=== PATIENT | female | born 1975 | race Caucasian/White ===

== ENCOUNTER 2016-11-19 22:59 | Emergency (ER) | payer OTHER ==
[2016-11-20] MEDS ORDERED: Acetaminophen TAB* 325 MG PO ONE (00:40)
[2016-11-20] MEDS ORDERED: HYDROcodone/ACETAMIN 5-325 MG* 1 TAB PO ONE (01:51)
--- NOTE | 2016-11-20 01:58 | ED ---
Head Injury - HPI Summary HPI Summary: Patient who is ETOH intoxicated arrives to the ED after falling backwards off the porch and hit her head on the right side over the parietal area puncturing the skin approx 30 minutes ago. A friend who was present denies LOC, N/V but states she was immediately confused and bleeding from the head. She also refused to get up until ambulance arrived. She does not recall the events immediately after she fell, but she does remember falling off the porch. She denies other pain or concerns. Denies neck pain, back pain, or hip pain. Denies lower and upper extremity pain. - History Of Current Complaint Chief Complaint: EDHeadInjury Stated Complaint: FALL/HEAD LAC Time Seen by Provider: 11/20/16 00:24 Hx Obtained From: Patient Hx Last Menstrual Period: jul 14 (every 3 months) Mechanism Of Injury: Direct Blow Onset/Duration: Started Hours Ago Onset of Pain: Immediate Severity Currently: Mild Severity Initially: Mild Pain Intensity: 0 Pain Scale Used: 0-10 Numeric Location of Head Injury: Parietal Character: Dull Associated Signs And Symptoms: Confusion, Headache - Risk Factors SDH Risk Factor: Negative - Allergies/Home Medications Allergies/Adverse Reactions: Allergies Allergy/AdvReac Type Severity Reaction Status Date / Time Amoxicillin Allergy Rash Verified 11/19/16 23:05 Penicillins Allergy Rash Verified 11/19/16 23:05 ENVIRONMENTAL Allergy SNEEZING, Uncoded 11/19/16 23:05 WATERY ITCHY EYES, RUNNY NOSE PMH/Surg Hx/FS Hx/Imm Hx Previously Healthy: Yes Endocrine/Hematology History: Denies: Hx Anticoagulant Therapy, Hx Diabetes, Hx Thyroid Disease Cardiovascular History: Denies: Hx Hypertension Respiratory History: Denies: Hx Asthma, Hx Chronic Obstructive Pulmonary Disease (COPD) GI History: Reports: Other GI Disorders - BILIARY COLIC Denies: Hx Ulcer History: Reports: Hx Kidney Stones - SMALL X 2, RECENTLY CAT SCAN, Other Problems/Disorders - PYLONEPHRITIS X 3, NONE IN LAST 10 YEARS Sensory History: Reports: Hx Contacts or Glasses - CONTACTS WILL WEAR GLASSES DAY OF SURGERY Denies: Hx Hearing Aid Opthamlomology History: Reports: Hx Contacts or Glasses - CONTACTS WILL WEAR GLASSES DAY OF SURGERY Neurological History: Reports: Hx Migraine - OCCASIONAL ABOUT BI-MONTHLY Psychiatric History: Reports: Hx Anxiety - NO MEDS - Surgical History Surgery Procedure, Year, and Place: 2003 [facility] Hx Anesthesia Reactions: No - Immunization History Hx Pertussis Vaccination: No Immunizations Up to Date: No Infectious Disease History: No Infectious Disease History: Denies: Hx Hepatitis, Hx Human Immunodeficiency Virus (HIV), Hx of Known/ Suspected MRSA, Hx Shingles, Hx Tuberculosis, Traveled Outside the [place] in Last 30 Days - Social History Occupation: Employed Full-time Lives: With Family Alcohol Use: Occasionally Hx Substance Use: No Substance Use Type: Reports: None Hx Tobacco Use: No Smoking Status (MU): Never Smoked Tobacco Do You Chew or Dip Tobacco: No Review of Systems Constitutional: Negative Eyes: Negative ENT: Negative Cardiovascular: Negative Respiratory: Negative Positive: no symptoms reported, see HPI Musculoskeletal: Negative Positive: Other - .5 by .5 laceration to the right parietal area Positive: Headache Psychological: Normal All Other Systems Reviewed And Are Negative: Yes Physical Exam Triage Information Reviewed: Yes Vital Signs On Initial Exam: Initial Vitals Temp Pulse Resp BP Pulse Ox 97.9 F 108 18 122/95 100 11/19/16 23:08 11/19/16 23:08 11/19/16 23:08 11/19/16 23:08 11/19/16 23:08 Vital Signs Reviewed: Yes Appearance: Positive: Well-Appearing, No Pain Distress, Well-Nourished Skin: Positive: Warm, Skin Color Reflects Adequate Perfusion, Other - .5 by .5 laceration to the right parietal area Eyes: Positive: EOMI, DASH, Conjunctiva Clear Neck: Positive: Supple, Nontender, No Lymphadenopathy Respiratory/Lung Sounds: Positive: Clear to Auscultation, Breath Sounds Present Cardiovascular: Positive: Normal, RRR Musculoskeletal: Positive: Normal, Strength/ROM Intact Neurological: Positive: Normal, Sensory/Motor Intact, Alert, Oriented to Person Place, Time, Speech Normal Psychiatric: Positive: Normal AVPU Assessment: Alert - Almyra Coma Scale Coma Scale Total: 15 Diagnostics - Vital Signs Vital Signs Temp Pulse Resp BP Pulse Ox 11/19/16 23:08 97.9 F 108 18 122/95 100 - Laboratory Lab Statement: Any lab studies that have been ordered have been reviewed, and results considered in the medical decision making process. Head Injury Course/Dx Course Of Treatment: PATIENT SENT TO CT BRAIN FOR FALL ONTO HEAD WITHOUT LOC BUT WITH CONFUSION. According to [facility] CT Head Rules, CT WAS obtained d/t: 1.Trauma from dangerous mechanism (eg, fall greater than 3 feet, MVA with ejection from vehicle, or pedestrian vs. motor vehicle accident). Complete neuro exam completed and WNL. Normal head/face inspection with no cephalohematoma. Reflexes intact. EOMI, DASH. No obvious confusion or memory loss per patient and family. MMSE OK. GCS 15. Patient oriented to person, place and date. No obvious deformity or signs of trauma. Patient denies LOC. Visual acuity intact. ROM, strength, reflexes un upper and lower extremity intact, sensation intact. Patient discharged with return precautions and post- concussive symptoms explained to patient. Patient agrees to follow up and return if needed. .5x.5CM puncture wound to the right parietal area. 2 alexa placed. patient tolerated well. tylneol 650mg given in ED 1 hour later, c/o pain and 2 hydrocodones given. patient felling improved. Ok for discharge home. - Diagnoses Differential Diagnosis/HQI/PQRI: Concussion With LOC, Concussion Without LOC, Laceration Provider Diagnoses: Puncture wound of head Discharge - Discharge Plan Condition: Stable Disposition: HOME Patient Education Materials: Head Injury (ED), Staple Care (ED) Referrals: Geena Pedro NP [Primary Care Provider] - Additional Instructions: Follow up with PCP. Brooks out in 10 days You may wash hair like normal, but do not scrub and be careful over the staple area. IF any symptoms become worse, come back to ED
[2016-11-20 02:27] VITALS: BP 116/88
--- NOTE | 2016-11-20 07:38 | RAD ---
INDICATION: Intracranial injury. Scalp injury COMPARISON: None TECHNIQUE: Noncontrast axial source images were acquired from the skull base to the vertex. FINDINGS: Ventricles/sulci: The ventricles and cisterns are normal in size and configuration for age. Brain parenchyma: There is no focal parenchymal finding, evidence of intracranial mass, or intracranial mass effect. Intracranial hemorrhage:None. Extra-axial spaces: There are no abnormal extra axial fluid collections or evidence of extra-axial mass. Calvarium: There is no calvarial fracture or other calvarial abnormality. Scalp: There is soft tissue swelling in the right parietal region with a laceration with a tiny punctate focus of air is septated soft tissues consistent with a history of puncture type injury. Paranasal sinuses/mastoid: The paranasal sinuses and mastoid air cells are clear. Other: None. IMPRESSION: No intracranial abnormalities. Right parietal puncture wound
== END 2016-11-20 02:25 | disposition home or self-care (01) ==
LOC: ED 22:59
DX: S01.93XA Puncture wound without foreign body of unspecified part of head, initial encounter (principal); R51 Headache; W18.00XA Striking against unspecified object with subsequent fall, initial encounter; Y93.9 Activity, unspecified; Y92.89 Other specified places as the place of occurrence of the external cause; R41.0 Disorientation, unspecified
CPT/HCPCS: 70450; 99283; A9270-GY

== ENCOUNTER 2016-12-02 09:20 | Emergency (ER) | payer SELFPAY ==
[2016-12-02 10:04] VITALS: BP 136/98
[2016-12-02] MEDS ORDERED: Ibuprofen TAB* 600 MG PO ONE (10:37)
[2016-12-02] MEDS ORDERED: Tetan/Diph/Pertus SYR(Tdap)* 0.5 ML SYR(BOOSTRIX) use SYR IM ONE (10:45)
[2016-12-02] MEDS ORDERED: Lidocaine 2% 10 ML* VIAL INJ ONE (11:24)
[2016-12-02] MEDS ORDERED: Lidocaine 2% PF * 5 ML VIAL ONE (11:29)
--- NOTE | 2016-12-02 13:36 | UC ---
Jon Maddox,Margret, scribed for Tabitha Gonzalez MD on 12/02/16 at 1044 . Skin Complaint HPI - HPI Summary HPI Summary: This 41 y/o female presents to [facility] for a laceration of her left thumb 1 hour [employer]. Pt was throwing out a trash bag at work when a broken glass caused the laceration. Bleeding is controlled at time of initial evaluation. No weakness or limited ROM. PMHx includes insomnia and migraine that are controlled with medications. Pt is unsure if pt is UTD with tetanus shot. Pt is right handed. FHx is positive for DM and CA. Pt is nonsmoker and drinker. LMP is 10/26/2016. Of note pt had laceration to her scalp stapled in the ED on 11/19/16, chart was reviewed, and pt's tetanus status was not updated. Plan of care involving tetanus update, laceration repair with suture, and suture recheck is discussed with pt, and pt is agreeable. - History of Current Complaint Chief Complaint: UCLaceration Stated Complaint: HAND LACERATION Hx Obtained From: Patient, Medical Records Hx Last Menstrual Period: 10/26/16 Onset/Duration: Sudden Onset, Lasting Hours, Still Present Skin Exposure Onset/Duration: Hours Ago Timing: Constant Onset Severity: Moderate Current Severity: Moderate Pain Intensity: 4 Pain Scale Used: 0-10 Numeric Location: Hand (Left) Character: Pain Aggravating: Nothing Alleviating: Nothing Associated Signs & Symptoms: Positive: Negative Related History: Other: - Occupational injury - Allergy/Home Medications Allergies/Adverse Reactions: Allergies Allergy/AdvReac Type Severity Reaction Status Date / Time Amoxicillin Allergy Rash Verified 12/02/16 10:04 Penicillins Allergy Rash Verified 12/02/16 10:04 ENVIRONMENTAL Allergy SNEEZING, Uncoded 12/02/16 10:04 WATERY ITCHY EYES, RUNNY NOSE Home Medications: Home Medications FLUoxetine* [Prozac*] 20 mg PO DAILY 12/02/16 [History Confirmed 12/02/16] Zolpidem TAB* [Ambien*] 10 mg PO BEDTIME 12/02/16 [History Confirmed 12/02/16] Review of Systems Constitutional: Negative Skin: Other - Left hand laceration Eyes: Negative ENT: Negative Respiratory: Negative Cardiovascular: Negative Gastrointestinal: Negative Genitourinary: Negative Motor: Negative Neurovascular: Negative Musculoskeletal: Negative Neurological: Negative Psychological: Negative All Other Systems Reviewed And Are Negative: Yes PMH/Surg Hx/FS Hx/Imm Hx Endocrine History Of: Denies: Diabetes, Thyroid Disease Cardiovascular History Of: Denies: Cardiac Disorders, Hypertension Respiratory History Of: Denies: COPD, Asthma GI/ History Of: Reports: Kidney Stones Denies: Ulcer Neurological History Of: Reports: Migraine - OCCASIONAL ABOUT BI-MONTHLY Psychological History Of: Reports: Anxiety - NO MEDS Other History Of: Negative For: Anticoagulant Therapy - Surgical History Surgical History: Yes Surgery Procedure, Year, and Place: 2003 [facility] [place], [facility], 2012 - Family History Known Family History: Positive: Other - Ovarian CA to grandmother - Social History Occupation: Employed Full-time Alcohol Use: Occasionally Substance Use Type: None Smoking Status (MU): Never Smoked Tobacco When Did the Patient Quit Smoking/Using Tobacco: 2003 Physical Exam Triage Information Reviewed: Yes Appearance: Well-Appearing, Well-Nourished, Pain Distress Vital Signs: Initial Vital Signs Temp 98.7 F 12/02/16 09:55 Pulse 73 12/02/16 09:55 Resp 20 12/02/16 09:55 BP 136/98 12/02/16 09:55 Pulse Ox 100 12/02/16 09:55 elevated BP noted Vital Signs Reviewed: Yes Eyes: Positive: Conjunctiva Clear ENT: Positive: Normal ENT inspection Neck: Positive: Supple Respiratory: Positive: Lungs clear, Normal breath sounds, No respiratory distress Cardiovascular: Positive: RRR, Pulses Normal, Brisk Capillary Refill Musculoskeletal: Positive: Strength Intact, ROM Intact Neurological: Positive: Alert, Muscle Tone Normal, Other: - Sensation intact Psychological Exam: Normal Skin: Positive: Other - 3cm laceration left thumb thenar eminence ventral surface Laceration Repair - Laceration Repair 1 Description: Linear Laceration Size After Repair: Length (cm) - 3, Width (mm) - 2 mm, Depth (mm) - 1 Modified For Repair: No Type Injection: Digital Anesthesia Used: 2.0% Lido Cleansing Completed Via Routine Prep: Yes Irrigation With Pressure Irrigation Device: Yes Closure Material: Sutures - 5 Closure Method: Single Layer Suture Of: Skin Suture Type: Nylon - 4-0 Re-Evaluation - Re-Evaluation First Eval Re-Evaluation Time: 11:56 Comment: MD in room to perform laceration repair. Course/Dx - Course Course Of Treatment: Allergies reviewed. Mildly elevated blood pressure of 136/ 98 is noted at triage. No known PMHx of HTN. Home medication list reviewed. Time out for laceration is 1157 AM witnessed by Chica Patel RN and Jenae Ignacio NP. - Differential Diagnoses - Skin Complaint Differential Diagnoses: Cellulitis, Other - laceration, puncture wound - Diagnoses Provider Diagnoses: 1) laceration left thumb with suture repair 2) Elevated Blood pressure without dx of HTN. 3) Tetanus Update Discharge - Discharge Plan Condition: Stable Disposition: HOME Patient Education Materials: Diphtheria/Acellular Pertussis/Tetanus Vaccine ( By injection), Care For Your Stitches (ED), Finger Laceration (ED) Referrals: Geena Pedro NP [Primary Care Provider] - 7 Days Additional Instructions: You may return to urgent care in 7-10 days to have your sutures removed. Return to urgent care if any signs of infection or any new or worsening symptoms. The documentation as recorded by the Jon michel Soohyun accurately reflects the service I personally performed and the decisions made by , Tabitha Gonzalez MD.
== END 2016-12-02 12:39 | disposition home or self-care (01) ==
LOC: UCEAST 09:20
DX: S61.012A Laceration without foreign body of left thumb without damage to nail, initial encounter (principal); W25.XXXA Contact with sharp glass, initial encounter; F41.9 Anxiety disorder, unspecified; R03.0 Elevated blood-pressure reading, without diagnosis of hypertension; G43.909 Migraine, unspecified, not intractable, without status migrainosus; Z88.3 Allergy status to other anti-infective agents; Z88.0 Allergy status to penicillin; Z87.442 Personal history of urinary calculi
CPT/HCPCS: 12002; 90471; 90715; 99211; A9270-GY; G0463; J2001

== ENCOUNTER 2017-08-08 12:28 | Emergency (ER) | payer SELFPAY ==
[2017-08-08 12:45] VITALS: BP 106/71
--- NOTE | 2017-08-08 12:50 | UC ---
Minor Trauma HPI - HPI Summary HPI Summary: Fell And injured right ribs last night - History of Current Complaint Chief Complaint: UCBackPain Stated Complaint: FELL PAIN IN RIB AREA LOWER BACK PAIN Time Seen by Provider: 08/08/17 12:49 Hx Obtained From: Patient Hx Last Menstrual Period: "3 months ago"- states she does not get periods with BC ?: No Onset/Duration: Sudden Onset Onset Of Pain: Immediate Severity Initially: Moderate Severity Currently: Moderate Mechanism Of Injury: Blunt Trauma, Fall From Height Of: Aggravating Factor(s): Deep Breaths, Movement Alleviating Factor(s): Nothing - Allergies/Home Medications Allergies/Adverse Reactions: Allergies Allergy/AdvReac Type Severity Reaction Status Date / Time Amoxicillin Allergy Rash Verified 08/08/17 12:36 Penicillins Allergy Rash Verified 08/08/17 12:36 ENVIRONMENTAL Allergy SNEEZING, Uncoded 08/08/17 12:36 WATERY ITCHY EYES, RUNNY NOSE Home Medications: Home Medications Ibuprofen [Ibuprofen 200] 600 mg PO Q6HR PRN 08/08/17 [History Confirmed ] PMH/Surg Hx/FS Hx/Imm Hx Previously Healthy: Yes Other History Of: Negative For: Anticoagulant Therapy - Surgical History Surgical History: Yes Surgery Procedure, Year, and Place: 2004 [facility], [place], [facility] - Family History Known Family History: Positive: Other - Ovarian CA to grandmother - Social History Occupation: Unemployed Lives: With Family Alcohol Use: Weekly Substance Use Type: None Smoking Status (MU): Never Smoked Tobacco When Did the Patient Quit Smoking/Using Tobacco: 2003 Review of Systems Constitutional: Negative Skin: Negative Eyes: Negative ENT: Negative Respiratory: Negative Cardiovascular: Chest Pain - right posterior rib pain Gastrointestinal: Negative Genitourinary: Negative Motor: Negative Neurovascular: Negative Musculoskeletal: Negative Neurological: Negative Psychological: Negative Is Patient Immunocompromised?: No All Other Systems Reviewed And Are Negative: Yes Physical Exam Triage Information Reviewed: Yes Appearance: Well-Appearing, Well-Nourished, Pain Distress Vital Signs: Initial Vital Signs Temp 97.9 F 08/08/17 12:38 Pulse 103 08/08/17 12:38 Resp 18 08/08/17 12:38 BP 106/71 08/08/17 12:38 Pulse Ox 98 08/08/17 12:38 Vital Signs Reviewed: Yes Eye Exam: Normal Eyes: Positive: Conjunctiva Clear ENT Exam: Normal ENT: Positive: Normal ENT inspection, Hearing grossly normal, Pharynx normal, TMs normal, Uvula midline. Negative: Nasal congestion, Nasal drainage, Tonsillar swelling, Tonsillar exudate, Trismus, Muffled voice, Hoarse voice, Dental tenderness, Sinus tenderness Dental Exam: Normal Neck exam: Normal Neck: Positive: Supple, Nontender, No Lymphadenopathy Respiratory Exam: Normal Respiratory: Positive: Chest non-tender, Lungs clear, Normal breath sounds, No respiratory distress, No accessory muscle use Cardiovascular Exam: Normal Cardiovascular: Positive: RRR, No Murmur, Pulses Normal, Brisk Capillary Refill , Other: - right posterior ribs tender to touch Abdominal Exam: Normal Abdomen Description: Positive: Nontender, No Organomegaly, Soft. Negative: CVA Tenderness (R), CVA Tenderness (L), Distended, Guarding Bowel Sounds: Positive: Present Musculoskeletal Exam: Normal Musculoskeletal: Positive: Strength Intact, ROM Intact, No Edema Neurological Exam: Normal Neurological: Positive: Alert, Muscle Tone Normal Psychological Exam: Normal Skin Exam: Normal Diagnostics - Radiology No standard instances Xray Interpretation: Positive (See Comments) - slightly displace lateral right 10th rib Radiology Interpretation Completed By: Radiologist Minor Trauma Course/Dx - Course Course Of Treatment: pain med heat/ice for comfort follow with pcp prn - Differential Dx/Diagnosis Provider Diagnoses: slightly displaced right posterior 10th rib fracture Discharge - Discharge Plan Condition: Stable Disposition: HOME Prescriptions: Hydrocodone-Acetaminophen [Hydrocodone/Acetaminophen 5-325 mg] 1 tab PO Q6HR PRN #16 tab MDD 4 PRN Reason: Pain - Moderate To Severe Hydrocodone-Acetaminophen [Hydrocodone/Acetaminophen 5-325 mg] 1 tab PO Q6HR PRN #16 tab MDD 4 PRN Reason: Pain - Moderate To Severe Ibuprofen TAB* [Motrin TAB* 600 MG] 600 mg PO Q6H PRN #40 tab PRN Reason: Pain Patient Education Materials: Dehydration (ED), Rib Fracture (ED) [place]: [facility] [facility] [place] [facility] [place]] - 1 Week
--- NOTE | 2017-08-08 13:43 | RAD ---
INDICATION: Right posterior rib pain after a fall the previous day COMPARISON: Chest x-ray August 23, 2013 TECHNIQUE: 5 views of the right ribs were obtained. FINDINGS: Involving the lateral aspect of the right 10th rib there is a slightly displaced fracture. The remaining ribs appear to be intact. There is no pneumothorax. IMPRESSION: Slightly displaced fracture involving the lateral right 10th rib.
== END 2017-08-08 14:17 | disposition home or self-care (01) ==
LOC: UCEAST 12:28
DX: S22.31XA Fracture of one rib, right side, initial encounter for closed fracture (principal); M54.5 Low back pain; Z88.0 Allergy status to penicillin; Z91.048 Other nonmedicinal substance allergy status; W17.89XA Other fall from one level to another, initial encounter; Y92.9 Unspecified place or not applicable
CPT/HCPCS: 81003; 81025; 87086; 99212; G0463